=== PATIENT | female | born 1975 | race Caucasian/White ===

== ENCOUNTER → 2018-09-04 12:13 | Outpatient (CLI) | payer SELFPAY ==
[2018-07-22 11:29] VITALS: BMI 32.4
--- NOTE | 2018-09-04 12:18 | BI_ITS ---
MAMMOGRAPHY - BILATERAL SCREENING REASON FOR EXAM: Female, 43 years old. Routine annual screening examination. PERTINENT HISTORY: Non-contributory. TECHNIQUE: Digital bilateral breast velasquez (3D mammographic acquisition) in the CC and MLO projections. 2-D mediolateral oblique (MLO) and craniocaudad (CC) views of both breasts were obtained. CAD: Full Field Digital Mammography with Computer Added Detection was performed. COMPARISON: None. Baseline examination. FINDINGS: Breast Composition: There are scattered areas of fibroglandular density. There are no dominant masses or suspicious calcifications. No other significant abnormalities are identified. BI/SCREEN MAMM (CAD) W/VELASQUEZ BILAT IMPRESSION: Negative screening mammogram. Yearly followup mammogram recommended. (A) ASSESSMENT CATEGORY: BIRADS Category 1: Negative. A letter regarding these results will be sent to the patient by the facility within 30 days. Approximately 10% of breast cancers are not detected by mammography. A normal mammogram should not delay biopsy of a clinically suspicious abnormality. [id number] Electronically Signed: Davis Puga, at 15:24 EST , Service support ,
== END ==
PROVIDERS: Referring Provider Nurse Practitioner Women's Health; Visit Provider Nurse Practitioner Women's Health
DX: Z12.31 Encounter for screening mammogram for malignant neoplasm of breast (principal)
CPT/HCPCS: 77063; 77067

== ENCOUNTER → 2018-10-23 14:22 | Outpatient (CLI) | payer SELFPAY ==
[2018-10-23 11:14] VITALS: BMI 32.4
[2018-10-23 14:50] LABS: Bacteria 0 SEEN /hpf (None Seen); Mucous, Urine 0 SEEN /hpf (<or=2+); Red Blood Cells-Urine 0 SEEN /hpf (0-5)
[2018-10-23 15:16] LABS: Color, Urine Straw (Yellow); Glucose, Dipstick Normal (Normal); Ketone-Dipstick Negative (Negative); Leukocyte Esterase-Dipstick 500 /ul (Negative); Nitrite-Dipstick Negative (Negative); Occult Blood-Urine 25 /ul (Negative); Protein-Dipstick Negative (Negative); Specific Gravity, Urine 1.005 (1.002-1.030); Urine Bilirubin Dipstick Negative (Negative); Urine Clarity Sl. Cloudy (Clear); Urine Urobilinogen Normal (Normal)
[2018-10-23 15:30] LABS: Squamous Epithelial Cells - UA 0-5 SEEN /hpf (5-10); White Blood Cells 0-5 SEEN /hpf (0-5)
== END ==
PROVIDERS: Referring Provider Physician Assistant Medical; Visit Provider Physician Assistant Medical
DX: R10.9 Unspecified abdominal pain (principal)
CPT/HCPCS: 81001; 87086; 87088; 87186

== ENCOUNTER → 2019-01-19 17:22 | Outpatient (CLI) | payer SELFPAY ==
--- NOTE | 2019-01-19 11:20 | EMB_PTH ---
PATIENT: YANE QUINONES LOC: [facility] U#:[id number] AGE/SX: 49/F ROOM: RE01/19/[address]: BINA Walls : 1975 BED: DIS: SPEC #: [id number] RECD: 01/19/19 16:59 STATUS: DIONE REYancy #: [id number] FERNANDO: 01/19/19 11:[address]: Melania Chan NP DEPT: SURGICAL PATHOLOGY RECD BY: Manfred George ENTERED: 01/20/19 10:58 SP TYPE: ENDOM BX/C SLIM DR: Dr. Anshu Thomas MD Tissues: Endometrium, NOS Procedures: Surgery Specimen Level IV HEADER OPERATION: Endometrial biopsy PRE-OP DIAGNOSIS: Abnormal uterine bleeding TISSUE SUBMITTED: Endometrial lining MICROSCOPIC DIAGNOSIS Endometrium, biopsy: Secretory endometrium with focal mild disorder. Chronic endometritis, mild. AM:maged 01/21/19 MICROSCOPIC DESCRIPTION Slides are reviewed. GROSS DESCRIPTION Received is one container labeled with the patient's name and not further designated. The specimen consists of multiple elongated fragments of saul-pink soft tissue that in aggregate measure 5 x 3.5 x 0.3 cm. The entire specimen is submitted in two cassettes. / SJ:maged 01/20/19 TC:3 CPT: 87108
[2019-01-19 11:42] VITALS: BMI 31.1
[2019-01-26 15:10] LABS: HPV APTIMA, High Risk Negative (Negative)
== END ==
PROVIDERS: Referring Provider Nurse Practitioner Women's Health; Visit Provider Nurse Practitioner Women's Health
DX: Z12.4 Encounter for screening for malignant neoplasm of cervix (principal); N93.9 Abnormal uterine and vaginal bleeding, unspecified
CPT/HCPCS: 87624; 88175; 88305; G0145

== ENCOUNTER → 2019-07-28 09:19 | Outpatient (CLI) | payer SELFPAY ==
[2019-07-28 13:19] VITALS: BMI 30.2
== END ==
PROVIDERS: Referring Provider Nurse Practitioner Women's Health; Visit Provider Nurse Practitioner Women's Health
DX: N85.01 Benign endometrial hyperplasia (principal)

== ENCOUNTER → 2019-07-28 16:30 | Outpatient (CLI) | payer SELFPAY ==
--- NOTE | 2019-07-28 | EMB_PTH ---
PATIENT: YANE QUINONES LOC: [facility] U#:[id number] AGE/SX: 49/F ROOM: RE07/28/[address]: BINA Walls : 1975 BED: DIS: SPEC #: [id number] RECD: 07/28/19 16:32 STATUS: DIONE NIRMAL #: [id number] FERNANDO: 07/28/19 00:[address]: Melania Chan NP DEPT: SURGICAL PATHOLOGY RECD BY: Manfred George Tissues: Endometrium, NOS Procedures: Surgery Specimen Level IV HEADER OPERATION: Endometrial biopsy PRE-OP DIAGNOSIS: Simple endometrial hyperplasia without atypia TISSUE SUBMITTED: Endometrial biopsy MICROSCOPIC DIAGNOSIS Endometrium, biopsy: Secretory endometrium. AM:maged 07/30/19 COMMENT Case has been reviewed in consultation with Dr. Mitchell who concurs with the above diagnosis. IDC:SJ MICROSCOPIC DESCRIPTION Slides are reviewed. GROSS DESCRIPTION Received is one container labeled with the patient's name and not further designated. The specimen consists of multiple irregular fragments of saul-pink soft tissue that in aggregate measure 3 x 2.5 x 0.2 cm. The specimen is totally submitted in one cassette. / LUZ MARIA:maged 07/29/19 TC:5 CPT: 47173
[2019-07-28 13:19] VITALS: BMI 30.2
== END ==
PROVIDERS: Visit Provider Nurse Practitioner Women's Health
DX: N85.01 Benign endometrial hyperplasia (principal)
CPT/HCPCS: 88305

== ENCOUNTER → 2020-05-02 07:38 | Outpatient (CLI) | payer SELFPAY ==
[2019-07-28 13:19] VITALS: BMI 30.2
[2020-05-02 09:15] LABS: Hematocrit 40.9 % (37-47); Hemoglobin 13.8 g/dL (12.0-15.0); Mean Corp Hgb Conc 33.7 g/dL (32-36); Mean Corpuscular Hgb 30.1 pg (27.0-32.0); Mean Corpuscular Volume 89.1 fL (81-99); Mean Platelet Vol. 9.7 fl (6.2-12.0); Platelet Count 423 K/mm3 (150-450); RBC Distribution Width SD 42.3 fl (35.1-43.9); Red Blood Count 4.59 M/mm3 (4.2-5.4); White Blood Count 8.2 K/mm3 (4.4-11.0)
[2020-05-02 09:35] LABS: AST(SGOT) 15 U/L (15-37); Alanine Aminotransfer ALT/SGPT 26 U/L (13-56); Albumin, Serum 3.8 g/dL (3.2-5.0); Alkaline Phosphatase 48 U/L (45-117); Anion Gap 6 (5-15); BUN 7 mg/dL (7-18); BUN/Creat Ratio 9.3 RATIO (10-20); Calcium,Total 8.8 mg/dL (8.5-10.1); Chloride 103 mmol/L (98-107); Cholesterol 243 mg/dL (200); Creatinine, Serum 0.75 mg/dL (0.55-1.02); EST Glomerular Filtration Rate 89 mL/min (>60); Est Glom Filt Rate - Afr Amer 108 mL/min (>60); Ferritin 13 ng/mL (8-252); Globulin 3.7 g/dL (2.2-4.2); Glucose 92 mg/dL (74-106); High Density Lipoprotein 65 mg/dL; Iron 56 ug/dL (50-170); Iron Binding Capacity,Total 373 ug/dL (250-450); Potassium 3.7 mmol/L (3.5-5.1); Protein, Total 7.5 g/dL (6.4-8.2); Sodium Level 138 mmol/L (136-145); Triglycerides 131 mg/dL; Very Low Density Lipoprotein 26 mg/dL (5-40)
[2020-05-02 09:36] LABS: Vitamin D,25 Hydroxy 60.5 ng/mL
== END ==
PROVIDERS: PCP Student in an Organized Health Care Education/Training Program; Visit Provider Student in an Organized Health Care Education/Training Program
DX: Z13.6 Encounter for screening for cardiovascular disorders (principal); R53.83 Other fatigue; E55.9 Vitamin D deficiency, unspecified
CPT/HCPCS: 36415; 80053; 80061; 82306; 82728; 83540; 83550; 85027

== ENCOUNTER → 2021-05-10 15:05 | Outpatient (CLI) | payer SELFPAY ==
[2021-05-10 15:23] LABS: Absolute Lymphocyte Count 1.96 X10^3/uL (0.83-4.51); Absolute Neutrophil Count 7.1 X10^3/uL (2.0-7.7); Basophil# 0.05 X10^3/uL; Basophil% 0.5 % (0-1); Hematocrit 36.3 % (37-47); Hemoglobin 12.8 g/dL (12.0-15.0); Lymphocyte # 1.96 X10^3/ul (0.83-4.51); Lymphocyte % 19.5 % (19-41); Mean Corp Hgb Conc 35.3 g/dL (32-36); Mean Corpuscular Hgb 29.8 pg (27.0-32.0); Mean Corpuscular Volume 84.6 fL (81-99); Mean Platelet Vol. 9.1 fl (6.2-12.0); Monocyte# 0.82 X10^3/uL; Monocyte% 8.1 % (0-10); NRBC Flagged by Analyzer 0 % (0-5); Neutrophil # 7.09 X10^3/uL (2.7-7.7); Neutrophil % 70.4 % (47-70); Platelet Count 426 K/mm3 (150-450); RBC Distribution Width CV 13.3 % (11.6-14.6); RBC Distribution Width SD 41.1 fl (35.1-43.9); Red Blood Count 4.29 M/mm3 (4.2-5.4); White Blood Count 10.1 K/mm3 (4.4-11.0)
== END ==
PROVIDERS: PCP Nurse Practitioner Family; Referring Provider Nurse Practitioner Women's Health; Visit Provider Nurse Practitioner Women's Health
DX: D64.9 Anemia, unspecified (principal)
CPT/HCPCS: 36415; 85025

== ENCOUNTER 2021-09-18 14:00 | Outpatient (CLI) | payer SELFPAY ==
--- NOTE | 2021-09-18 09:15 | EMB_PTH ---
PATIENT: [facility]ON[id number] AGE/SX: 46/F ROOM: RE09/18/[address]: BINA Walls : 1975 BED: DIS: 09/18/2021 SPEC #: [id number] RECD: 09/18/21 13:54 STATUS: DIONE REYancy #: [id number] FERNANDO: 09/18/21 09:[address]: Melania Chan NP DEPT: SURGICAL PATHOLOGY RECD BY: Chichi Lodr ENTERED: 09/19/21 09:57 SP TYPE: ENDOM BX/C SLIM DR: BINA Cuevas Tissues: Endometrium, NOS Procedures: Surgery Specimen Level IV HEADER OPERATION: Endometrial biopsy PRE-OP DIAGNOSIS: Abnormal uterine bleeding TISSUE SUBMITTED: Endometrial biopsy MICROSCOPIC DIAGNOSIS Endometrial biopsy: Proliferative endometrium. SJ:maged 09/20/2021 MICROSCOPIC DESCRIPTION Slides are reviewed. GROSS DESCRIPTION Received is one container labeled with the patient's name and not further designated. The specimen consists of multiple irregular fragments of saul soft tissue that in aggregate measure 2 x 1 x 0.1 cm. The specimen is totally submitted in one cassette. / SJ:maged 09/19/2021 TC:4 CPT: 06124
== END 2021-09-18 23:59 | disposition home or self-care (01) ==
PROVIDERS: PCP Nurse Practitioner Family; Visit Provider Nurse Practitioner Women's Health
DX: N93.9 Abnormal uterine and vaginal bleeding, unspecified (principal)
CPT/HCPCS: 88305

== ENCOUNTER 2021-09-28 11:50 | Outpatient (CLI) | payer SELFPAY ==
--- NOTE | 2021-09-28 11:55 | US_ITS ---
STUDY: ULTRASOUND OF THE FEMALE PELVIS - COMPLETE REASON FOR EXAM: Female, 46 years old. AUB -- ENDO HYPERPLASIA -- ON PROGESTERONE -- HX OF D and amp;C 2019 LMP: 08/27/2021. TECHNIQUE: Transabdominal and Transvaginal TECHNICAL QUALITY: Adequate. COMPARISON: None. FINDINGS: The uterus is retroverted and is in a midline position. The uterus measures 9.5 cm x 6.7 cm x 5.4 cm. Normal uterine cervix. The endometrium is thickened and measures 15 mm in thickness, and is heterogeneous (striated). There is no demonstrated endometrial mass. Heterogeneous appearance of the myometrium. No focal fibroid is seen. I.U.D. - The patient does not have an I.U.D. The right ovary is visualized. The right ovary measures 2.5 cm x 2.5 cm x 1.1 cm. There is no right ovarian cyst or ovarian mass. There is no visualized right adnexal mass or complex lesion. There is normal arterial and normal venous vascularity. The left ovary is visualized. The left ovary measures 2.5 cm x 2 cm x 1.9 cm. There is no left ovarian cyst or ovarian mass. There is no visualized left adnexal mass or complex lesion. There is normal arterial and normal venous vascularity. There is no fluid in the cul-de-sac. The pre void volume of the bladder was 235 ml. US/Pelvic (Non ) IMPRESSION: Heterogeneous echotexture of the uterus suggestive of fibroid change although no discrete fibroid is seen. Thickened endometrium measuring 15 mm. Electronically Signed: Davis Puga MD at 13:38 EDT ,
--- NOTE | 2021-09-28 11:55 | US_ITS ---
STUDY: ULTRASOUND OF THE FEMALE PELVIS - COMPLETE REASON FOR EXAM: Female, 46 years old. AUB -- ENDO HYPERPLASIA -- ON PROGESTERONE -- HX OF D and amp;C 2019 LMP: 08/27/2021. TECHNIQUE: Transabdominal and Transvaginal TECHNICAL QUALITY: Adequate. COMPARISON: None. FINDINGS: The uterus is retroverted and is in a midline position. The uterus measures 9.5 cm x 6.7 cm x 5.4 cm. Normal uterine cervix. The endometrium is thickened and measures 15 mm in thickness, and is heterogeneous (striated). There is no demonstrated endometrial mass. Heterogeneous appearance of the myometrium. No focal fibroid is seen. I.U.D. - The patient does not have an I.U.D. The right ovary is visualized. The right ovary measures 2.5 cm x 2.5 cm x 1.1 cm. There is no right ovarian cyst or ovarian mass. There is no visualized right adnexal mass or complex lesion. There is normal arterial and normal venous vascularity. The left ovary is visualized. The left ovary measures 2.5 cm x 2 cm x 1.9 cm. There is no left ovarian cyst or ovarian mass. There is no visualized left adnexal mass or complex lesion. There is normal arterial and normal venous vascularity. There is no fluid in the cul-de-sac. The pre void volume of the bladder was 235 ml. US/Transvaginal Non- IMPRESSION: Heterogeneous echotexture of the uterus suggestive of fibroid change although no discrete fibroid is seen. Thickened endometrium measuring 15 mm. Electronically Signed: Davis Puga MD at 13:38 EDT ,
== END 2021-09-28 23:59 | disposition home or self-care (01) ==
PROVIDERS: PCP Nurse Practitioner Family; Referring Provider Nurse Practitioner Women's Health; Visit Provider Nurse Practitioner Women's Health
DX: N85.01 Benign endometrial hyperplasia (principal); N92.0 Excessive and frequent menstruation with regular cycle
CPT/HCPCS: 76830; 76856

== ENCOUNTER → 2022-04-17 | Outpatient (CLI) | payer SELFPAY ==
--- NOTE | 2022-04-17 14:30 | EMB_PTH ---
PATIENT: YANE QUINONES LOC: [facility] U#:[id number] AGE/SX: 46/F ROOM: RE04/17/[address]: Dr. Anna Deluca DO : 1975 BED: DIS: 04/17/2022 SPEC #: [id number] RECD: 04/17/22 15:56 STATUS: DIONE REYancy #: [id number] FERNANDO: 04/17/22 14:[address]: Anna Deluca DEPT: SURGICAL PATHOLOGY RECD BY: Ngozi Crowder ENTERED: 04/18/22 08:49 SP TYPE: ENDOM BX/C SLIM DR: Ele Benavidez, ARRESTING GEAR OPERATOR-C Tissues: Endometrium, NOS Procedures: Surgery Specimen Level IV HEADER OPERATION: Endometrial biopsy PRE-OP DIAGNOSIS: Simple endometrial hyperplasia without atypia TISSUE SUBMITTED: Endometrial lining MICROSCOPIC DIAGNOSIS Endometrium, biopsy: Secretory endometrium. AM:maged 04/19/2022 MICROSCOPIC DESCRIPTION Slides are reviewed. GROSS DESCRIPTION Received is one container labeled with the patient's name and not further designated. The specimen consists of multiple irregular fragments of pink-saul soft tissue that in aggregate measure 2.5 x 1.7 x 0.2 cm. The specimen is totally submitted in one cassette. / AM:maged 04/18/2022 TC:5 CPT: 85558
== END | disposition home or self-care (01) ==
LOC: LABSPEC 16:08
PROVIDERS: PCP Nurse Practitioner Family; Visit Provider Obstetrics & Gynecology
DX: N85.01 Benign endometrial hyperplasia (principal)
CPT/HCPCS: 88305

== ENCOUNTER 2022-08-27 07:38 | Day surgery (SDC) | payer SELFPAY ==
[2022-08-22 15:15] LABS: Absolute Lymphocyte Count 1.87 X10^3/uL (0.83-4.51); Absolute Neutrophil Count 6.8 X10^3/uL (2.0-7.7); Basophil# 0.04 X10^3/uL; Basophil% 0.4 % (0-1); Hematocrit 40.2 % (37-47); Hemoglobin 13.9 g/dL (12.0-15.0); Lymphocyte # 1.87 X10^3/ul (0.83-4.51); Lymphocyte % 19.1 % (19-41); Mean Corp Hgb Conc 34.6 g/dL (32-36); Mean Corpuscular Hgb 30.9 pg (27.0-32.0); Mean Corpuscular Volume 89.3 fL (81-99); Mean Platelet Vol. 9.7 fl (6.2-12.0); Monocyte# 0.86 X10^3/uL; Monocyte% 8.8 % (0-10); NRBC Flagged by Analyzer 0 % (0-5); Neutrophil # 6.81 X10^3/uL (2.7-7.7); Neutrophil % 69.7 % (47-70); Platelet Count 370 K/mm3 (150-450); RBC Distribution Width CV 13.2 % (11.6-14.6); RBC Distribution Width SD 43.2 fl (35.1-43.9); White Blood Count 9.8 K/mm3 (4.4-11.0)
[2022-08-22 15:39] LABS: Magnesium 2.4 mg/dL (1.6-2.6)
[2022-08-27] VITALS (11 sets, daily range): BP systolic 105–125; BP diastolic 67–81; PULSE 59–93; RESP 12–18; TEMP 36.1–37.7; O2SAT 97–100; BMI 29.7
--- NOTE | 2022-08-27 | HYST_PTH ---
PATIENT: YANE QUINONES LOC: [facility] U#:[id number] AGE/SX: 47/F ROOM: RE08/27/[address]: Dr. Anna Deluca DO : 1975 BED: DIS: 08/27/2022 SPEC #: [id number] RECD: 08/27/22 13:34 STATUS: DIONE SALDAÑAYancy #: [id number] FERNANDO: 08/27/22 00:[address]: Anna Deluca DEPT: SURGICAL PATHOLOGY RECD BY: Campos Solorzano ENTERED: 08/27/22 13:34 SP TYPE: HYSTERECT OTHR DR: Dr. Jose Luis Rehman, MD Ele Benavidez, IMMERSION METALCLEANER-C Tissues: Uterus, NOS Procedures: Surgery Specimen Level V HEADER OPERATION: ERAS, total vaginal hysterectomy, cysto PRE-OP DIAGNOSIS: Menorrhagia with regular cycle; simple endometrial hyperplasia without atypia; uterine polyp; anemia TISSUE SUBMITTED: Uterus, cervix, bilateral fallopian tubes MICROSCOPIC DIAGNOSIS Uterus, cervix, bilateral fallopian tubes, vaginal hysterectomy and bilateral salpingectomy: Cervix ? chronic cystic cervicitis and squamous metaplasia. Endometrium ? early secretory endometrium. Myometrium ? focal superficial adenomyosis. Bilateral fallopian tubes - no pathologic diagnosis. SJ:rg 08/28/2022 COMMENT Please make reference to previous specimens ([id number]), endometrial biopsy with diagnosis of ?proliferative endometrium? and ([id number]) endometrial biopsy with diagnosis of ?secretory endometrium.? MICROSCOPIC DESCRIPTION Slides are reviewed. GROSS DESCRIPTION Received in fixative is one container labeled with the patient's name and designated uterus, cervix, bilateral fallopian tubes. The specimen consists of a hysterectomy specimen consisting of uterus with cervix and detached bilateral fallopian tubes. The uterus with cervix weighs 166 gm and measures 11.0 x 7.5 x 6.0 cm. The serosal surface is saul, glistening. The ectocervical mucosa is unremarkable. The external os is oval and patulous in contour. The endocervical canal is filled with mucoid material and measures 3.0 cm in length. The endocervical mucosa is saul, glistening and unremarkable. Sections of the cervix reveal a few cysts filled with mucoid material. The triangular endometrial cavity measures 6.0 cm in length and 3.5 cm in width. The endometrium measures up to 0.2 cm in thickness. Sections of the uterine wall do not reveal any mass lesion and measures 3.0 cm in thickness. The detached fallopian tubes are not identified as right or left and measures 5.0 cm in length and 0.6 cm in diameter and 4.0 cm in length and 0.8 cm in diameter. Sections of fallopian tube reveal unremarkable cut surfaces. Director Independent sections are submitted in eight cassettes as follows: 1 - anterior cervix, 2 - posterior cervix, 3 & 4 - anterior uterine wall, 5 & 6 - posterior uterine wall, 7 - one fallopian tube, 8 - other fallopian tube. / SJ:maged 08/27/2022 TC:5 CPT: 63740
[2022-08-27 08:20] LABS: Internal QC Validated? YES +Cl - CLEAR BKGD; Pregnancy, Urine Negative Negative
[2022-08-27] MEDS: Lactated Ringers 1,000 ML 40 ML IV (08:33)
[2022-08-27] MEDS: dexAMETHasone 10 MG/ML Vial 8 MG IV (08:33)
[2022-08-27] MEDS: Celecoxib 200 MG Capsule 400 MG PO (08:34)
[2022-08-27] MEDS: Acetaminophen 500 MG Tablet 1000 MG PO (08:34)
[2022-08-27] MEDS: Gabapentin 600 MG Tablet PO (08:35)
[2022-08-27] MEDS: Magnesium 1 GM over 15 mins IV (08:35)
[2022-08-27 09:06] LABS: Bedside Glucose 101 mg/dL (74-106)
[2022-08-27] MEDS: Clindamycin 900 MG/50 ML BAG 75 MG IV (09:35)
--- NOTE | 2022-08-27 09:43 | PCM.HP.BLA ---
History and Physical Date of Admission: 08/27/22 Intake Vital Signs ? 08/07/2313:13 08/07/2313:13 Height 5 ft 3 in 5 ft 3 in Weight: 171 lb ? BMI 30.2 ? BP 136/76 H ? Intake Visit Reasons:?TVH possible cysto Tube Building Machine Operator Required: No Is patient in pain?: No Allergies Penicillins Adverse Reaction (Unknown, Verified 08/07/22 14:13) unknown Medications trazodone 100 mg tablet 200 mg PO QHS PRN Sleep 05/10/21 [History Confirmed 08/07/22] escitalopram oxalate 5 mg tablet (Lexapro) 5 mg PO DAILY 09/18/21 [History Confirmed 08/07/22] Lactobacillus acidophilus 10 billion cell capsule (Probiotic) 10,000 mmu cells PO DAILY 06/07/22 [History Confirmed 08/07/22] acetylcysteine 600 mg capsule (NAC) 600 mg PO DAILY 06/07/22 [History Confirmed 08/07/22] iron 150 mg-vit C 60 mg-folate 1 [id number]-tpcw-jwhzfqxi-lzfuchi tablet 1 tab PO DAILY 06/07/22 [History Confirmed 08/07/22] melatonin 10 mg tablet 6 mg PO QHS 06/07/22 [History Confirmed 08/07/22] vitamin B6-vitamin E-magnesium tablet 1 tab PO DAILY 06/07/22 [History Confirmed 08/07/22] progesterone micronized 200 mg capsule (Prometrium) 200 mg PO .COMPLEX #24 caps 06/19/22 [Rx Confirmed 08/07/22] Post menopausal: No Patient : No : No PFSH Medical History Anemia Anxiety Depression Non-smoker Surgical History? Broken ankle Broken fibula H/O dilation and curettage Family History? Other Depression History of cholecystectomy Hypercholesterolemia Social History? number of children:? 4 current occupational status:? 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 Never smoker alcohol intake:? never substance use type:? does not use what type of physical activity do you participate in:? walking seatbelt use:? always do you feel safe at home:? 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 ultrasound showed: The uterus is retroverted and is in a midline position.? The uterus measures 9.5 cm x 6.7 cm x 5.4 cm.? Normal uterine cervix.? The endometrium is thickened and measures 15 mm in thickness, and is heterogeneous (striated).? There is no demonstrated endometrial mass.? Heterogeneous appearance of the myometrium.? No focal fibroid is seen. ? I.U.D. - The patient does not have an I.U.D. The right ovary is visualized.? The right ovary measures 2.5 cm x 2.5 cm x 1.1 cm.? There is no right ovarian cyst or ovarian mass.? There is no visualized right adnexal mass or complex lesion. There is normal arterial and normal venous vascularity. The left ovary is visualized.? The left ovary measures 2.5 cm x 2 cm x 1.9 cm.? There is no left ovarian cyst or ovarian mass.? There is no visualized left adnexal mass or complex lesion.? There is normal arterial and normal venous vascularity. There is no fluid in the cul-de-sac. The pre void volume of the bladder was 235 ml. US/Transvaginal Non- IMPRESSION: Heterogeneous echotexture of the uterus suggestive of fibroid change although no discrete fibroid is seen. ? Thickened endometrium measuring 15 mm. History ? ? ? 5 ? Elective abortions ? Hx Para ? ? ? 4 ? Spontaneous abortions ? ? ? 1 Hx # Term Pregnancies ? ? ? 4 ? Ectopic pregnancies ? Hx # Pregnancies ? Multiple births ? # of living children ? ? ? 4 Past Pregnancies Del. Date Name GA/Weeks Outcome Route Bth Weight Gen Labor Lgth Anesthesia Del Locatn Provider FOB Unknown Saqib ? 1998 ? Unknown Althea ? 1999 ? Unknown Kasia? 2001 ? Unknown Jocelin ? ? 2006 ? ROS Const ROS Unobtainable: All systems reviewed & are unremarkable except as noted in H Resp Resp: Reports system reviewed and no additional complaints, except as documented; Denies cough GI GI: Reports as per HPI Psych Psych: Reports system reviewed and no additional complaints, except as documented Exam Const General: cooperative, healthy appearing, comfortable and no acute distress Resp Effort & Inspection: normal respiratory effort Skin General: no rashes or lesions noted Psych Appearance: grossly normal Speech and Movement: speech and movement normal Coding Level of Care Code Off vis,est,level 3 Diagnoses Menorrhagia with regular cycle? N92.0 Simple endometrial hyperplasia without atypia? N85.01 Uterine polyp? N84.0 Cystocele with incomplete uterovaginal prolapse? N81.2 Anemia? D64.9 ? ? ? Anemia type: unspecified type Assessment and Plan Assessment and Plan (1) Menorrhagia with regular cycle: ?Status:?Acute (2) Simple endometrial hyperplasia without atypia: ?Status:?Acute ?Comment: D&C 06/2018 Derrick (3) Uterine polyp: ?Status:?Acute (4) Cystocele with incomplete uterovaginal prolapse: ?Status:?Acute (5) Anemia: ?Status:?Acute ?Qualifiers: ?Anemia type:?unspecified type? Qualified Code(s):?D64.9 - Anemia, unspecified ?Comment: ON IRON Plan After discussing the patient's diagnosis and treatment plan options, patient wishes to proceed with surgical management.? I have discussed with the patient the risks, benefits, and alternatives of the procedure which include but are not limited to risks of anesthesia, bleeding, infection, possible damage to bowel, bladder, or surrounding vasculature which could lead to additional surgery to evaluate any complications.? Patient agrees to procedure and wishes to proceed.? ACOG/uptodate references given for additional information regarding procedure.? pt does not want to have surgery to correct the cystocele and only wants to proceed with the vaginal hysterectomy for hyperplasia and abnormal bleeding. plan for TVH, possible bilateral salpingectomy, possible cystoscopy.
--- NOTE | 2022-08-27 09:57 | PCM.DC ---
Discharge Instructions Diet Discharge Diet: No restrictions Activity Discharge Activity: Return to Normal Activity, May Not Drive (while taking narcotic pain medications.) and May Shower May resume sexual activity in: 6-8 weeks Dressing / Incision Call your doctor if your incision/area has: Continuous Slow Oozing, Sudden Increased Bleeding, Increased Pain/ Swelling, Increased Redness and Foul Smelling Discharge Call your doctor if you observe: Fever of 101 or Higher, Inability to urinate, Inability to have a bowel movement and Using more than 1 pad per hour Follow Up Care Please Follow Up With: Anna Deluca DO Test Results: Test results from this visit will be discussed in further detail at your follow-up appointment, if applicable. Discharge Plan Admission Primary Reason for Your Visit: hysterectomy Attending Provider: Anna Deluca Primary Care Provider: Ele Benavidez ZIPPER CUTTER Consulting Providers: Jose Luis Rehman Discharge Orders/Prescriptions Prescriptions: New oxycodone-acetaminophen [Percocet] 5-325 mg tablet 1 tab PO Q4H PRN (Reason: pain) 7 Days Qty: 30 0RF Rx Instructions: 1-2 tabs q 4 hrs as needed for pain naproxen 500 mg tablet 500 mg PO BID PRN (Reason: pain) Qty: 30 0RF Continued trazodone 100 mg tablet 200 mg PO QHS PRN (Reason: Sleep) escitalopram oxalate [Lexapro] 5 mg tablet 5 mg PO QHS melatonin 10 mg Tablet 6 mg PO QHS Probiotic 10 billion cell Capsule 10,000 mmu cells PO DAILY iron ag,[id number] 150 mg iron- 60 mg-1 mg Tablet 1 tab PO DAILY Neurogreen Superfood 1 pkg PO/SL DAILY Plant Based Protein 1 packet PO/SL DAILY Raw Zinc 2 tab PO/SL DAILY Held vitamin B6-vitamin E-magnesium Tablet 1 tab PO DAILY Hold Instructions: Resume on 09/24/22. Adk Eveil 1 pill PO/SL DAILY Hold Instructions: Resume on 09/24/22. Dim Detox 2 tab PO/SL DAILY Hold Instructions: Resume on 09/24/22. Le^Ium 3 tab PO/SL DAILY Hold Instructions: Resume on 09/24/22. No Action acetylcysteine [NAC] 600 mg Capsule 600 mg PO DAILY Referrals / Follow Up: Ele Benavidez ZIPPER CUTTER, ZIPPER CUTTER-C [Primary Care Provider] - Disposition Disposition (needs filled in before D/C Order can be placed): Home, Self Care
[2022-08-27] MEDS: Bupivacaine 0.25% 30 ML Vial (10:22)
[2022-08-27] MEDS: Sugammadex Sodium 200 MG/2 ML VIAL IV (11:24)
[2022-08-27] MEDS: Ondansetron 4 MG/2 ML Vial IV (11:24)
--- NOTE | 2022-08-27 11:37 | OP.PCM_ITS ---
Operative Report Date of Procedure: 08/27/22 Preoperative Diagnosis: menorrhagia, enlarged uterus, pelvic prolapse, failed conservative therapy Postoperative diagnosis: menorrhagia, enlarged uterus, pelvic prolapse, failed conservative therapy. surgery: Total vaginal hysterectomy, bilateral salpingectomy, cystoscopy Surgeon: Dr. nAna Deluca DO Vegetable Farming Supervisor: EMI Ceron EBL: 40cc urine output: 600cc complications: none Procedure: Patient was taken to the operating room and was placed under general anesthesia was prepped and draped in normal sterile fashion in the dorsal lithotomy position. Preoperative antibiotics and SCDs and Kennedy catheter was placed inside the bladder. Weighted speculum was placed in the vagina and the anterior and posterior lip of the cervix was grasped with 2 Colt clamps and circumferentially injected with dilute vasopressin. A circumferential incision was made with a scalpel and the posterior cul-de-sac was entered into sharply and a longneck speculum was placed. The anterior cul-de-sac was also dissected down and entered into sharply and the uterosacral ligaments were clamped cut and suture ligated bilaterally followed by the cardinal ligaments which were Clamped cut and suture ligated bilaterally with 0 Monocryl. The uterus serially descended and progressive bites were taken bilaterally up to the level of the utero-ovarian ligament bilaterally which was clamped transected and double ligated with 0 Monocryl suture and 0 Vicryl free tie. Bilateral fallopian tubes and ovaries were well visualized and noted be within normal limits and the bilateral fallopian tubes were transected across the base with a Jolanta clamp and removed and sutured with 0 Vicryl suture. Excellent hemostasis was noted. Posterior peritoneum was reapproximated with 2-0 Vicryl and a modified Campbell stitch was placed through the posterior vaginal cuff and bilateral uterosacral ligaments across the posterior cul-de-sac skimming along to provide apical support to the vagina. The vagina was closed with [id number] 0 Vicryl pop offs including the posterior and anterior peritoneum in the reapproximation. Excellent hemostasis was noted. Next, a cystoscope was inserted into the urethra and into the bladder. The bladder was instilled with approximately 200cc of saline. No suture material or lacerations were noted. Positive ureteral jets were seen flowing from both ureters. The bladder as drained and the cystoscope was removed from the urethra All instruments removed from the vagina clear urine was noted at the end of the procedure and patient was awoken and taken recovery in stable condition. Multi Select Codes Urinary/Genital Urinary/Genital CPT Codes: 77617 Cystoscopy and 50253 TVH+BS/O <250gr uterus
[2022-08-27] MEDS: Lactated Ringers 1,000 ML 100 ML IV (13:04)
[2022-08-27] MEDS: HYDROcodone Bitartrate/Apap 5/325 Tablet PO (15:03)
== END 2022-08-27 17:15 | disposition home or self-care (01) ==
LOC: SDC 07:39 → AC 07:39
PROVIDERS: Anesthesiology; PCP Nurse Practitioner Family; Referring Provider Obstetrics & Gynecology; Visit Provider Obstetrics & Gynecology
PROC: (CPT 58260; principal; 2022-08-27 09:15)
DX: N80.03 Adenomyosis of the uterus (principal); N72 Inflammatory disease of cervix uteri; N87.9 Dysplasia of cervix uteri, unspecified; N92.0 Excessive and frequent menstruation with regular cycle; N81.4 Uterovaginal prolapse, unspecified; D64.9 Anemia, unspecified; F41.9 Anxiety disorder, unspecified; F32.A Depression, unspecified; Z79.899 Other long term (current) drug therapy
CPT/HCPCS: 58262; 52000; 36415; 81025; 82962; 83735; 85025; 86850; 86900; 86901; 88307; J7120; J2405; J3475

== ENCOUNTER 2024-11-14 18:11 | Emergency (ER) | payer SELFPAY ==
[2024-11-14 18:12] VITALS: BP 144/80; PULSE 70; RESP 20; TEMP 36.2; O2SAT 100; BMI 34.5
--- NOTE | 2024-11-14 19:13 | EX.ED.DYSGE1 ---
HPI History of Present Illness Chief Complaint: Suicidal Narrative Narrative: Chief complaint and HPI: Suicidal ideation and anxiety. 49-year-old female with history of anxiety, depression, OCD, and previous Lyme disease presents for evaluation of suicidal ideation and anxiety. Patient states that she was diagnosed with Lyme disease in 2022 along with Bartonella. She states her Lyme disease was treated. She states she has been having increased anxiety and depression. She follows with Dr. Stephen Lui at [facility] in [place] so she had an appointment with him on Friday. He thought that this was secondary to her untreated Bartonella and therefore placed her on azithromycin, rifampin, L-arginine, and clotrimazole. Patient states that she feels like her anxiety and depression worsened since taking these and therefore she only took this for 2 days and stopped them. She takes Prozac 10 mg daily and Seroquel 12.5 mg at night to sleep. She takes as needed Xanax. Patient states the past 2 days she has been having suicidal ideation such as overdosing on Xanax. She endorses decreased sleep and decreased appetite secondary her symptoms. She endorses increased anxiety. Patient states she needs help which is why she presented here. She denies any fever, chills, shortness of breath, chest pain abdominal pain, nausea, vomiting, dysuria. Review of systems: See HPI Medications: As listed on the chart Allergies: As listed on the chart PFSH: Per chart Vital signs: As listed on the chart. Reviewed. Physical exam: Gen: A&O x3, NAD but intermittently tearful Head: Normocephalic, atraumatic Eyes: No sclera icterus, conjunctiva clear, PERRL, EOMI ENT: Moist mucous membranes Neck: Trachea midline, No JVD CV: RRR, no murmurs, no peripheral edema Resp: Lungs CTA BL, no w/r/c GI: Abd soft, non-distended, non-tender, no r/r/g Musc: Full ROM, no deformity Skin: Warm, dry Neuro: Alert, oriented, grossly intact, sensation intact Psych: Cooperative, appropriate mood and affect [facility] Medical History Easy bruising History of OCD (obsessive compulsive disorder) Depression Anxiety Non-smoker Cystocele with incomplete uterovaginal prolapse Anemia Uterine polyp Simple endometrial hyperplasia without atypia Menorrhagia with regular cycle Home Medications ?Medication ?Instructions ?Recorded ?Last Taken ?Type escitalopram oxalate 5 mg tablet 5 mg PO QHS 09/18/21 Unknown History (Lexapro) Lactobacillus acidophilus 10 10,000 mmu cells PO DAILY 06/07/22 Unknown History billion cell capsule (Probiotic) acetylcysteine 600 mg capsule (NAC) 600 mg PO DAILY 06/07/22 Unknown History iron 150 mg-vit C 60 mg-folate 1 1 tab PO DAILY 06/07/22 Unknown History [id number] tablet melatonin 10 mg tablet 5 mg PO QHS 06/07/22 Unknown History vitamin B6-vitamin E-magnesium 1 tab PO DAILY 06/07/22 Unknown History tablet Held on 08/27/22. Instructions: Resume on 09/24/22. Adk Eveil 1 pill PO/SL DAILY 08/12/22 Unknown History Held on 08/27/22. Instructions: Resume on 09/24/22. Dim Detox 2 tab PO/SL DAILY 08/12/22 Unknown History Held on 08/27/22. Instructions: Resume on 09/24/22. Le^Ium 3 tab PO/SL DAILY 08/12/22 Unknown History Held on 08/27/22. Instructions: Resume on 09/24/22. Neurogreen Superfood 1 pkg PO/SL DAILY 08/12/22 Unknown History Plant Based Protein 1 packet PO/SL DAILY 08/12/22 Unknown History Raw Zinc 2 tab PO/SL DAILY 08/12/22 Unknown History naproxen 500 mg tablet 500 mg PO BID PRN pain #30 tabs 08/27/22 Unknown Rx oxycodone-acetaminophen 5 mg-325 1 tab PO Q4H PRN pain 7 days #30 08/27/22 Unknown Rx mg tablet (Percocet) tabs alprazolam 1 mg tablet 1 mg PO TID PRN PRN anxiety 11/14/24 Unknown History fluoxetine 10 mg tablet 10 mg PO DAILY 11/14/24 11/14/24 History quetiapine 25 mg tablet 12.5 mg PO QHS 11/14/24 Unknown History Allergy/AdvReac Type Severity Reaction Status Date / Time Penicillins AdvReac Intermediate Hives Verified 11/14/24 18:12 Family History Other Depression History of cholecystectomy Hypercholesterolemia Surgical History Status post hysterectomy (~08/27/22) Broken fibula Broken ankle H/O dilation and curettage Social History number of children: 4 current occupational status: unemployed current occupation: homemaker Smoking Status: Never smoker alcohol intake: never substance use type: does not use what type of physical activity do you participate in: walking seatbelt use: always do you feel safe at home: Yes additional social history: [employer] EXAM Physical Exam Const Vital Signs: 11/14/24 18:12 11/14/24 18:34 11/14/24 20:42 Temperature 97.2 F L Temperature Source Temporal Pulse Rate 70 56 L Respiratory Rate 20 H 13 Respiratory Effort Normal Non-Labored Blood Pressure 144/80 H 136/80 H Blood Pressure Mean 101 98 Pulse Ox 100 98 Oxygen Delivery Method Room Air MDM MDM MDM Narrative Medical decision making narrative: 49-year-old female with history of anxiety, depression, OCD, and previous Lyme disease presents for evaluation of suicidal ideation and anxiety. Patient endorses suicidal ideation with a plan to overdose on medication. She also endorses insomnia and decreased appetite as well as increased anxiety. Given patient's suicidal ideation, patient will be pink slipped. She would benefit from inpatient psychiatric facility placement with changes in her medication. Patient is in agreement to this and understands. Medical clearance labs ordered for placement. CBC without leukocytosis or anemia. BMP relatively unremarkable. TSH elevated at 4.360. However free T4 is normal. Patient has subclinical hypothyroidism. She needs to have this further evaluated outpatient. Serum negative. UA negative for UTI. Urine drug screen positive for benzodiazepines. Patient does take Xanax. Alcohol level unremarkable. On reevaluation, patient feels that her anxiety is increasing, she is tearful. P.o. Ativan given with her home medications. On reevaluation, patient's anxiety has improved. Patient and were updated of all the results and the medical clearance for inpatient psychiatric facility. Crisis will come evaluate the patient. Patient and her were made aware of her thyroid dysfunction and told to follow-up with her primary care physician outpatient for this. They confirmed understanding. Awaiting crisis evaluation at this time. Impression: 1. Suicidal ideation 2. Anxiety 3. Depression Lab Data Labs: Laboratory Results - last 24 hr 11/14/24 19:20 WBC 8.9 RBC 4.28 Hgb 13.2 Hct 36.6 L MCV 85.5 MCH 30.8 MCHC 36.1 H RDW Std Deviation 41.1 RDW Coeff of Sirisha 13.2 Plt Count 327 MPV 9.4 Immature Gran % (Auto) 0.700 Neut % (Auto) 64.0 Lymph % (Auto) 24.5 [place] % (Auto) 9.0 Eos % (Auto) 1.2 Baso % (Auto) 0.6 Absolute Neuts (auto) 5.7 Absolute Lymphs (auto) 2.19 Nucleated RBC % 0 Sodium 135 Potassium 3.8 Chloride 103 Carbon Dioxide 20.9 L Anion Gap 11 BUN 11 Creatinine 0.51 L Estim Creat Clear Calc 142.34 Est GFR (MDRD) Non-Af 115 BUN/Creatinine Ratio 21.4 H Glucose 106 H Calcium 9.3 TSH 4.360 H Free T4 1.10 Serum , Qual NEGATIVE Urine Color Straw Urine Clarity Clear Urine pH 7.0 Ur Specific [place] 1.005 Urine Protein Negative Urine Glucose (UA) Normal Urine Ketones Negative Urine Occult Blood Negative Urine Nitrite Negative Urine Bilirubin Negative Urine Urobilinogen Normal Ur Leukocyte Esterase Negative Urine RBC 0 SEEN Urine WBC 0 SEEN Ur Squamous Epith Cells 5-10 SEEN Urine Bacteria RARE Urine Mucus 0 SEEN Urine Opiates Screen NEGATIVE U Buprenorphine Qual NEGATIVE Ur Oxycodone Screen NEGATIVE Urine Methadone Screen NEGATIVE Urine Fentanyl Screen NEGATIVE Ur Barbiturates Screen NEGATIVE Ur Phencyclidine Scrn NEGATIVE Ur Amphetamines Screen NEGATIVE U Benzodiazepines Scrn PRESUMPTIVE POSITIVE Urine Cocaine Screen NEGATIVE U Cannabinoids Screen NEGATIVE Ethyl Alcohol < 10.1 Discharge Plan Triage Chief Complaint: Suicidal ED Provider: Jassi Black Dx/Rx/DC Orders Prescriptions: No Action escitalopram oxalate [Lexapro] 5 mg tablet 5 mg PO QHS vitamin B6-vitamin E-magnesium Tablet 1 tab PO DAILY acetylcysteine [NAC] 600 mg Capsule 600 mg PO DAILY melatonin 10 mg Tablet 5 mg PO QHS Probiotic 10 billion cell Capsule 10,000 mmu cells PO DAILY iron ag,[id number] 150 mg iron- 60 mg-1 mg Tablet 1 tab PO DAILY Adk Eveil 1 pill PO/SL DAILY Dim Detox 2 tab PO/SL DAILY Le^Ium 3 tab PO/SL DAILY Neurogreen Superfood 1 pkg PO/SL DAILY Plant Based Protein 1 packet PO/SL DAILY Raw Zinc 2 tab PO/SL DAILY oxycodone-acetaminophen [Percocet] 5-325 mg tablet 1 tab PO Q4H PRN (Reason: pain) 7 Days Qty: 30 0RF Rx Instructions: 1-2 tabs q 4 hrs as needed for pain naproxen 500 mg tablet 500 mg PO BID PRN (Reason: pain) Qty: 30 0RF quetiapine 25 mg tablet 12.5 mg PO QHS alprazolam 1 mg tablet 1 mg PO TID PRN PRN (Reason: anxiety) fluoxetine 10 mg tablet 10 mg PO DAILY Primary Care Provider: Ele Benavidez NP Referrals: Ele Benavidez SHOE ASSOCIATE, [facility]OC[facility] [Primary Care Provider] - Print Language: Latvian
[2024-11-14 19:39] LABS: Absolute Lymphocyte Count 2.19 X10^3/uL (0.83-4.51); Absolute Neutrophil Count 5.7 X10^3/uL (2.0-7.7); Basophil# 0.05 X10^3/uL; Basophil% 0.6 % (0-1); Eosinophil# 0.11 X10^3/uL; Eosinophils% 1.2 % (0-5); Hematocrit 36.6 % (37-47); Hemoglobin 13.2 g/dL (12.0-15.0); Lymphocyte # 2.19 X10^3/ul (0.83-4.51); Lymphocyte % 24.5 % (19-41); Mean Corp Hgb Conc 36.1 g/dL (32-36); Mean Corpuscular Hgb 30.8 pg (27.0-32.0); Mean Corpuscular Volume 85.5 fL (81-99); Mean Platelet Vol. 9.4 fl (6.2-12.0); NRBC Flagged by Analyzer 0 % (0-5); Neutrophil # 5.72 X10^3/uL (2.7-7.7); Platelet Count 327 K/mm3 (150-450); RBC Distribution Width CV 13.2 % (11.6-14.6); RBC Distribution Width SD 41.1 fl (35.1-43.9); Red Blood Count 4.28 M/mm3 (4.2-5.4); White Blood Count 8.9 K/mm3 (4.4-11.0)
--- NOTE | 2024-11-14 19:48 | ED.RN ---
While checking in Pt and asking about thoughts of self harm, Pt stated, sometimes I think maybe I should take a bunch of xanax. Dr Gonzales notified.
[2024-11-14 20:04] LABS: Internal QC Validated? YES +Cl - CLEAR BKGD; Pregnancy, Serum, hCG Quali. NEGATIVE Negative
[2024-11-14 20:10] LABS: Alcohol, Blood (Medical)-Serum < 10.1 mg/dL (<=10.0)
[2024-11-14 20:11] LABS: Amphetamine Urine NEGATIVE (<1000 ng/mL); Barbiturate Urine NEGATIVE (< 200 ng/mL); Benzodiazepine Urine PRESUMPTIVE POSITIVE (< 200 ng/mL); Buprenorphine Urine NEGATIVE (< 200 ng/mL); Cocaine Urine NEGATIVE (< 300 ng/mL); Fentanyl, Urine NEGATIVE; Methadone Urine NEGATIVE (< 300 ng/mL); Opiates Urine NEGATIVE (< 300 ng/mL); Oxycodone, Urine NEGATIVE (< 100 ng/mL); PCP Urine NEGATIVE (< 25 ng/mL); THC Urine NEGATIVE (< 50 ng/mL)
[2024-11-14 20:15] LABS: Anion Gap 11 (5-15); BUN 11 mg/dL (4-19); BUN/Creat Ratio 21.4 RATIO (10-20); Calcium,Total 9.3 mg/dL (7.6-11.0); Carbon Dioxide 20.9 mmol/L (21.0-32.0); Chloride 103 mmol/L (98-108); Creatinine, Serum 0.51 mg/dL (0.70-1.20); EST Glomerular Filtration Rate 115 (>60); Estimated Creatinine Clearance 142.34 ml/min (50-250); Glucose 106 mg/dL (70-99); Potassium 3.8 mmol/L (3.3-5.1); Sodium Level 135 mmol/L (133-145)
[2024-11-14 20:31] LABS: Mucous, Urine 0 SEEN /hpf (<or=2+); Red Blood Cells-Urine 0 SEEN /hpf (0-5); White Blood Cells 0 SEEN /hpf (0-5)
[2024-11-14 20:40] LABS: Color, Urine Straw (Yellow); Glucose, Dipstick Normal (Normal); Ketone-Dipstick Negative (Negative); Leukocyte Esterase-Dipstick Negative /ul (Negative); Nitrite-Dipstick Negative (Negative); Occult Blood-Urine Negative /ul (Negative); Protein-Dipstick Negative (Negative); Specific Gravity, Urine 1.005 (1.002-1.030); Urine Bilirubin Dipstick Negative (Negative); Urine Clarity Clear (Clear); Urine Urobilinogen Normal (Normal)
[2024-11-14 20:42] VITALS: BP 136/80; PULSE 56; RESP 13; O2SAT 98
[2024-11-14] MEDS: QUEtiapine 25 MG Tablet 12.5 MG PO (21:02)
[2024-11-14] MEDS: LORazepam 1 MG Tablet PO (21:02)
[2024-11-14] MEDS: MELATONIN 10 MG TABLET PO (21:03)
[2024-11-14 21:38] LABS: Bacteria RARE /hpf (None Seen); Squamous Epithelial Cells - UA 5-10 SEEN /hpf (5-10)
[2024-11-15] MEDS: DiphenhydrAMINE 25 MG Capsule 50 MG PO (02:28)
[2024-11-15 02:40] VITALS: BP 127/68; PULSE 62; RESP 18; O2SAT 98
--- NOTE | 2024-11-15 04:33 | EKG12_ITS ---
Test Reason : [facility] Blood Pressure : */* mmHG Vent. Rate : 74 BPM Atrial Rate : 74 BPM P-R Int : 144 ms QRS Dur : 82 ms QT Int : 370 ms P-R-T Axes : 63 48 54 degrees QTcB Int : 410 ms Normal sinus rhythm Normal ECG Confirmed by KRYSTAL DOWNS, ABHILASH ([id number]), web editor CHANG PEDRO ([id number]) on 11/16/2024 1:27:57 PM Referred By: Jassi Black Confirmed By: ABHILASH RICE MD
[2024-11-15] MEDS: Acetaminophen 500 MG Tablet 1000 MG PO (08:40)
--- NOTE | 2024-11-15 09:50 | ED.RN ---
Mariana from [facility] called, pt is still under review at [facility], no beds available today, soonest possible discharges will possibly be tomorrow
--- NOTE | 2024-11-15 10:02 | ED.RN ---
spoke with Dr. Shen about having crisis to review pt prior to 24 hrs. crisis called and they will send someone as soon as possible to re-evaluate the pt and if appropriate will discuss safety planning with the provider.
[2024-11-15] MEDS: FLUoxetine 10 MG Capsule PO (10:10)
[2024-11-15] MEDS: ALPRAZolam 0.5 MG Tablet 1 MG PO (10:10)
--- NOTE | 2024-11-15 13:54 | ED.RN ---
THIS UNCRATER CALLED [facility] AT 1355, SPOKE TO SILVIA, PT IS BEING SAFETY PLANNED AFTER THE REASSESSMENT FROM CRISIS. SO TRANSFER/REFERRAL HAS BEEN CANCELLED
[2024-11-15 14:17] VITALS: BP 100/66; PULSE 62; RESP 18; TEMP 36.8; O2SAT 96
== END 2024-11-15 14:23 | disposition home or self-care (01) ==
PROVIDERS: Emergency Provider Surgery; PCP Nurse Practitioner Family; Referring Provider Surgery; Visit Provider Surgery
DX: R45.851 Suicidal ideations (principal); F41.9 Anxiety disorder, unspecified; E03.9 Hypothyroidism, unspecified; F32.A Depression, unspecified; Z90.710 Acquired absence of both cervix and uterus; F42.9 Obsessive-compulsive disorder, unspecified
CPT/HCPCS: 80048; 80307; 81001; 82077; 84439; 84443; 84703; 85025; 93005; 99285

== ENCOUNTER → 2025-01-24 | Outpatient (CLI) | payer SELFPAY ==
[2025-01-24 19:58] LABS: Hematocrit 40.9 % (37-47); Hemoglobin 14.3 g/dL (12.0-15.0); Immature Granulocytes Count 0.050 X10^3/uL (0.0-0.0); Mean Corp Hgb Conc 35.0 g/dL (32-36); Mean Corpuscular Volume 87.4 fL (81-99); Mean Platelet Vol. 9.9 fl (6.2-12.0); NRBC Flagged by Analyzer 0 % (0-5); Platelet Count 344 K/mm3 (150-450); RBC Distribution Width CV 13.0 % (11.6-14.6); RBC Distribution Width SD 41.1 fl (35.1-43.9); Red Blood Count 4.68 M/mm3 (4.2-5.4); White Blood Count 8.5 K/mm3 (4.4-11.0)
[2025-01-24 20:06] LABS: AST(SGOT) 17 U/L (<=31); Alanine Aminotransfer ALT/SGPT 14 U/L (<=34); Albumin, Serum 4.4 g/dL (3.5-5.0); Alkaline Phosphatase 49 U/L (35-104); Anion Gap 13 (5-15); BUN 15 mg/dL (4-19); BUN/Creat Ratio 20.9 RATIO (10-20); Calcium,Total 10.4 mg/dL (7.6-11.0); Carbon Dioxide 25.5 mmol/L (21.0-32.0); Chloride 101 mmol/L (98-108); Cholesterol 307 mg/dL (<=200); Ferritin 72 ng/mL (22-378); Globulin 3.0 g/dL (2.2-4.2); Glucose 100 mg/dL (70-99); Low Density Lipoprotein Calc. 187 mg/dL; Potassium 4.0 mmol/L (3.3-5.1); T3 Total - Triiodothyronine 0.75 ng/mL (0.80-2.00); T4 Total, Thyroxin 5.3 ug/dL (4.8-13.9); Triglycerides 260 mg/dL; Very Low Density Lipoprotein 52 mg/dL (5-40); Vitamin B12 1587 pg/mL (180-914); cholesterol:hdl ratio screen 4.51
[2025-01-24 20:33] LABS: FOLATES,SERUM (FOLIC ACID) 36.50 ng/mL (4.60-34.80)
[2025-01-24 21:14] LABS: Iron 98 ug/dL (50-170); Magnesium 2.5 mg/dL (1.5-2.2)
[2025-01-25 13:09] LABS: Free T3 2.3 pg/mL (2.18-3.98)
== END | disposition home or self-care (01) ==
PROVIDERS: PCP Nurse Practitioner Family; Referring Provider Nurse Practitioner Family; Visit Provider Nurse Practitioner Family
DX: E03.9 Hypothyroidism, unspecified (principal); R53.83 Other fatigue
CPT/HCPCS: 36415; 80053; 80061; 82607; 82627; 82728; 82746; 83036; 83540; 83735; 84403; 84432; 84436; 84439; 84443; 84480; 84481; 85025; 86376; 86800; 82626